=== PATIENT | female | born 1950 | race American Indian/Alaskan Native ===

== ENCOUNTER 2017-11-15 16:26 | Emergency (ER) | payer MEDICAID ==
[2017-11-15 16:53] VITALS: BP 187/106
[2017-11-15] MEDS ORDERED: NACL 0.9% 1000 ML 1,000 ML IV ONE (16:54)
== END 2017-11-15 18:30 | disposition left against medical advice (07) ==
LOC: ED 16:26
DX: R42 Dizziness and giddiness (principal); Z53.21 Procedure and treatment not carried out due to patient leaving prior to being seen by health care provider
CPT/HCPCS: 82962